=== PATIENT | female | born 1940 | race Hispanic/Latino ===

== ENCOUNTER 2018-08-20 14:44 | Emergency (ER) | payer MEDICARE, OTHER ==
[2018-08-20] MEDS ORDERED: Lidocaine 2% w Epi 1:100,000 Inj IJ ONE (15:36)
--- NOTE | 2018-08-20 15:39 | ED PDOC ---
HPI: General Adult Time Seen by Provider: 08/20/18 15:37 Chief Complaint (Nursing): Trauma Chief Complaint (Provider): head injury History Per: Patient (78 y/o female here with head injury noted today after she tripped on uneven pavement. No LOC noted. Is not on any bloodthinners. Tetanus status up to date.) Past Medical History Reviewed: Historical Data, Nursing Documentation, Vital Signs Vital Signs: Last Vital Signs Temp 98.4 F 08/20/18 14:51 Pulse 88 08/20/18 14:51 Resp 20 08/20/18 14:51 BP 146/92 H 08/20/18 14:51 Pulse Ox 100 08/20/18 14:51 - Family History Family History: States: No Known Family Hx - Home Medications Home Medications: Ambulatory Orders Medication Instructions Recorded Cephalexin [Keflex] 500 mg PO BID #10 capsule 08/20/18 - Allergies Allergies/Adverse Reactions: Allergies Allergy/AdvReac Type Severity Reaction Status Date / Time No Known Allergies Allergy Verified 08/20/18 15:34 Review of Systems ROS Statement: Except As Marked, All Systems Reviewed And Found Negative Physical Exam - Reviewed Nursing Documentation Reviewed: Yes Vital Signs Reviewed: Yes - Physical Exam Appears: Positive for: Well, Non-toxic, No Acute Distress Head Exam: Positive for: NORMAL INSPECTION, NORMOCEPHALIC. Negative for: ATRAUMATIC (6 cm laceration deep right frontal region of scalp) Skin: Positive for: Normal Color, Warm, DRY Eye Exam: Positive for: EOMI, Normal appearance, PERRL ENT: Positive for: Normal ENT Inspection Neck: Positive for: Normal, Painless ROM Cardiovascular/Chest: Positive for: Regular Rate, Rhythm Respiratory: Positive for: CNT, Normal Breath Sounds Gastrointestinal/Abdominal: Positive for: Normal Exam, Soft Back: Positive for: Normal Inspection Extremity: Positive for: Normal ROM Neurologic/Psych: Positive for: Alert, Oriented - ECG O2 Sat by Pulse Oximetry: 100 - Progress ED Course And Treament: Head CT:NAD Disposition - Clinical Impression Clinical Impression: Head injury, Complex laceration of face - Patient ED Disposition Is Patient to be Admitted: No - Disposition Disposition: Routine/Home Disposition Time: 17:55 Condition: FAIR Additional Instructions: RETURN IN 5 DAYS FOR REMOVAL OF SUTURES AFTER SUTURES REMOVED RECOMMEND SUNBLOCK X 6 MONTHS. USE OF VITAMIN E OIL AND COCOA BUTTER CAN ASSIST WITH WOUND HEALING. Prescriptions: Cephalexin [Keflex] 500 mg PO BID #10 capsule Instructions: Closed Head Injury (DC), Laceration Repair With Stitches (DC) Procedure: Wound Repair - Time Performed Time Performed: 17:53 - Time Out Time Out: Site verified - Consent Obtained Consent obtained: Verbal - Performed by Performed by: Mid-level Provider - Indications Indication(s):: Laceration - Location Location:: Right, Face Dimensions Length cm: 6.0 cm Depth:: Subcutaneous fascia - Anesthetic Technique Anesthetic Technique: Local Local/Regional Anesthetic:: Lidocaine 2% w/epi - Debris Debris:: None - Irrigated Irrigated with ml of normal saline: 150ml - Complexity Complexity:: Intermediate (2 layer) - Wound repair method Sutures:: # (FOUR 4-0 VICRYL SUTURES SUBCUTANEOUS. THIRTEEN 6-0 PROLENE SUTURES INTERRUPTED EXTERNAL) - Muscle repiar layer closed with Muscle repair layer closed with:: Abx ointment applied, Tetanus NA - Patient tolerated procedure Patient Tolerated Procedure:: Well
[2018-08-20] MEDS ORDERED: Lidocaine PF 2% (5 ml) Inj (For Cardiac Arrhy) ONE (16:10)
--- NOTE | 2018-08-20 16:26 | CT ---
Date of service: 08/20/2018 PROCEDURE: CT HEAD WITHOUT CONTRAST. HISTORY: head injury COMPARISON: None available. TECHNIQUE: Axial computed tomography images were obtained through the head/brain without intravenous contrast. Radiation dose: Total exam DLP = 814.61 mGy-cm. This CT exam was performed using one or more of the following dose reduction techniques: Automated exposure control, adjustment of the mA and/or kV according to patient size, and/or use of iterative reconstruction technique. FINDINGS: HEMORRHAGE: No intracranial hemorrhage. BRAIN: No mass effect or edema. Mild cerebral atrophy or mild bilateral periventricular chronic microvascular ischemic changes suggested. VENTRICLES: Unremarkable. No hydrocephalus. CALVARIUM: Small benign-appearing high right frontal exostosis series 4, image 5. This is believe a incidental finding. No calvarial fracture suggested PARANASAL SINUSES: Unremarkable as visualized. No significant inflammatory changes. MASTOID AIR CELLS: Unremarkable as visualized. No inflammatory changes. OTHER FINDINGS: Right frontal scalp soft tissue swelling and irregularity consistent with focal trauma here. Multiple calcifications skin and/or dermal ir superficial around each external auditory canal noted. Probably relating to debris IMPRESSION: No intracranial hemorrhage or mass effect. Right focal scalp soft tissue swelling small hematoma inferred +/-laceration. Correlate clinically Mild cerebral atrophy or mild bilateral periventricular chronic microvascular ischemic changes suggested. Other findings as above.
[2018-08-20] MEDS ORDERED: Lidocaine 1% w Epi 1:100,000 Inj ONE (17:18)
[2018-08-20 20:23] VITALS: BP 122/60; PULSE 80; RESP 16; TEMP 98; O2SAT 99
== END 2018-08-20 18:35 | disposition home or self-care (01) ==
LOC: H.ER 14:44
DX: S01.81XA Laceration without foreign body of other part of head, initial encounter (principal); S09.90XA Unspecified injury of head, initial encounter; W19.XXXA Unspecified fall, initial encounter; Y92.480 Sidewalk as the place of occurrence of the external cause